=== PATIENT | female | born 1995 | race Caucasian/White ===

== ENCOUNTER 2020-10-11 07:22 | Emergency (ER) | payer MEDICAID ==
[~2020-10-11] VITALS: Ht 167.6 cm; Wt 78.0 kg
[2020-10-11 07:30] VITALS: Ht 167.6 cm; Wt 78.0 kg
[2020-10-11 08:09] LABS: BASOPHIL % 0.2 % (0.2-1.3); PLATELET COUNT 314 x10^3mcL (179-408)
[2020-10-11 08:19] LABS: RED CELL DISTRIBUTION WIDTH 14.7 % (12.3-17.7)
[2020-10-11 09:04] LABS: CALCIUM 8.4 mg/dL (8.5-10.1); CARBON DIOXIDE 25.9 mmol/L (21-32); CHLORIDE SERUM 100 mmol/L (98-107); CREATININE SERUM 0.9 mg/dL (0.6-1.0); GFR1 > 60 mL/min; GLUCOSE SERUM 96 mg/dL (74-106); POTASSIUM SERUM 3.2 mmol/L (3.5-5.1); SODIUM SERUM 137 mmol/L (136-145)
[2020-10-11 09:11] LABS: ALBUMIN 3.9 g/dL (3.4-5.0); ALKALINE PHOSPHATASE 79 U/L (46-116); ALT/SGPT 29 U/L (14-59); AST/SGOT 20 U/L (15-37); BILIRUBIN TOTAL 0.65 mg/dL (0.20-1.00); LIPASE 130 IU/L (73-393); TOTAL PROTEIN, SERUM 7.7 g/dL (6.4-8.2)
[2020-10-11] MEDS ORDERED: MONODOX100 MG PO (11:31)
[2020-10-11] MEDS ORDERED: ZOF4 PO (11:31)
[2020-10-11 11:35] VITALS: BP 117/70
== END 2020-10-11 11:35 | disposition home or self-care (01) ==
LOC: ED 07:22
PROVIDERS: Emergency Medicine
DX: E87.6 Hypokalemia (principal); R11.10 Vomiting, unspecified; R19.7 Diarrhea, unspecified; R10.84 Generalized abdominal pain; Z98.890 Other specified postprocedural states
CPT/HCPCS: J2405; J7030